=== PATIENT | male | born 1945 | race Caucasian/White ===

== ENCOUNTER → 2020-06-21 10:25 | Outpatient (CLI) | payer OTHER, SELFPAY ==
[2020-06-21 13:35] LABS: Prostate Specific Antigen 0.479 ng/mL (0.10-4.00)
== END ==
PROVIDERS: PCP Family Medicine; Referring Provider Specialist; Visit Provider Specialist
DX: N40.1 Benign prostatic hyperplasia with lower urinary tract symptoms (principal); N13.8 Other obstructive and reflux uropathy; N21.0 Calculus in bladder; N39.41 Urge incontinence
CPT/HCPCS: 36415; 52000; 81002; 84153; 99213

== ENCOUNTER 2020-06-26 11:40 | Day surgery (SDC) | payer OTHER, SELFPAY ==
[2020-06-26] VITALS (8 sets, daily range): BP systolic 120–138; BP diastolic 69–83; PULSE 68–90; RESP 12–17; TEMP 35.9–36.7; O2SAT 97–99; BMI 19.3
[2020-06-26] MEDS: CEFAZOLIN 2 GM/100 ML FROZ.PIGGY IV (12:45)
[2020-06-26] MEDS: LACTATED RINGERS 1,000 ML 42 ML IV ×2 (12:45→13:53)
--- NOTE | 2020-06-26 12:50 | PM.PREOP ---
Pre-operative Note Interval Note History & Physical reviewed/Exam performed by Physician: Yes Changes to H&P: No
--- NOTE | 2020-06-26 13:49 | SUR.OPER ---
Lithotomy on padded OR bed, head on pillow, arms secured on padded arm boards at <90 degrees abduction. Legs secured in padded yellow fins stirrups.
[2020-06-26] MEDS: BELLADONNA/OPIUM SUPPOSITORIES 1 EACH PR (13:59)
--- NOTE | 2020-06-26 14:26 | P.OP_ITS ---
Operative Date/Time/Diagnoses Date of procedure: 06/26/20 Time of procedure: 14:26 Pre-op diagnosis: Bladder calculus Urinary incontinence Post-op diagnosis: same Procedure & Clinicians Procedure: 1. Cystoscopy and laser litholapaxy. Same procedure as scheduled: Yes Indications: 1. Bladder calculus 2. 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 Bladder-2+ trabeculation. Normal orifices bilaterally. There is a moderate- sized calculus line dependently in the floor of the bladder. Closure Type: not applicable Specimen(s): other (Fragmented bladder stone) Applied: catheter (20. Cymraes Rios.) Estimated Blood Loss (mL): 0 Blood products transfused: none Tourniquet time (min): 0 Procedure in detail: Patient was positioned in supine was administered general anesthesia. He was then repositioned semi lithotomy the lower abdomen genitalia and groin were then prepped and draped in sterile fashion. The 22 Cymraes laser continuous flow endoscope was then passed lower urinary tract with the findings as described above. All operating room personnel and patient were fitted with laser safety eyewear. A 550 micron laser fiber was then selected and laser lithotripsy was commenced. Power settings in frequency were adjusted as indicated by fragmentation rate and treatment conditions. The Elick evacuator was then used to remove the nearly all of the fragments. Some tiny ones were left behind due to their it here its to the inflamed mucosa related to treatment effect. The bladder was then left partially filled and the scope and laser fiber were removed. A 20 Cymraes Rios catheter was then inserted, the balloon inflated to 10 cc, and then was placed to gravity drainage. The patient was then repositioned in supine, awakened, and transferred to [facility] in stable condition. Complications: none Post-operative Condition: stable Disposition: PACU Plan for aftercare: Home
[2020-07-07 11:24] LABS: Ca oxalate dihydrate 30%; Size 4X5 mm; Stone Analysis Source URINARY BLADDER
[2020-07-07 11:25] LABS: Ca oxalate monohydr 50%; Hydroxyapatite 20%
== END 2020-06-26 15:45 | disposition home or self-care (01) ==
PROVIDERS: PCP Family Medicine; Referring Provider Specialist; Visit Provider Specialist
PROC: (CPT 52317; principal; 2020-06-26 13:15)
DX: N21.0 Calculus in bladder (principal); R32 Unspecified urinary incontinence; N40.0 Benign prostatic hyperplasia without lower urinary tract symptoms
CPT/HCPCS: 52317; 82365; J0690; J2405; J2704; J3010

== ENCOUNTER → 2021-04-26 15:44 | Outpatient (CLI) | payer OTHER, SELFPAY | PROVIDERS: PCP Family Medicine; Referring Provider Specialist; Visit Provider Specialist | DX: Z12.5 Encounter for screening for malignant neoplasm of prostate (principal); N40.1 Benign prostatic hyperplasia with lower urinary tract symptoms; N13.8 Other obstructive and reflux uropathy; Z68.20 Body mass index [BMI] 20.0-20.9, adult | CPT/HCPCS: 36415; 51798; 81002; 99214; G0103 ==